=== PATIENT | female | born 1995 | race Caucasian/White ===

== ENCOUNTER 2018-04-01 09:40 | Emergency (ER) | payer OTHER, BC ==
[~2018-04-01] VITALS: Ht 167.6 cm; Wt 86.2 kg
[2018-04-01] MEDS ORDERED: BIRTH CONTROL (09:57)
[2018-04-01] MEDS ORDERED: ANTACID SUSP 30 ML UDC (MYLANTA) PO ONE (10:30)
[2018-04-01] MEDS ORDERED: KETOROLAC 30 MG/ML VIAL IVP STA (10:30)
[2018-04-01] MEDS ORDERED: LIDOCAINE 2% VISCOUS 15 ML UDC PO ONE (10:30)
[2018-04-01 10:51] LABS: BILIRUBIN,URINE NEGATIVE (NEGATIVE); CLARITY,URINE SLIGHTLY CLOUDY; COLOR,URINE YELLOW; GLUCOSE, URINE (UA) NEGATIVE (NEGATIVE); KETONES,URINE 2+ (NEGATIVE); LEUKOCYTE ESTERASE ,URINE 1+ (NEGATIVE); NITRITE,URINE NEGATIVE (NEGATIVE); PH,URINE 8 (5-9); PROTEIN,URINE NEGATIVE (NEGATIVE); UROBILINOGEN,URINE NORMAL (NORMAL)
--- NOTE | 2018-04-01 10:53 | ED Abdominal Pain ---
General Chief Complaint: Abdominal/GI Problems Stated Complaint: CHEST AND BACK PAIN Nursing Triage Note: PT CO OF EPIGASTRIC PAIN STARTED LAST PM, STATES GOES DOWN TO UMBILICUS AND AROUND TO UPPER BACK STARTED LAST PM RATES7/10 ON PAIN SCALE, Sepsis Screen: No Definite Risk Source of Information: Patient Exam Limitations: No Limitations (KEYONA GOVEA MD) History of Present Illness Date Seen by Provider: Apr 01, 2018 Time Seen by Provider: 10:21 Initial Comments Here with report of pain that started in the epigastric region last night and goes through to her back. Worse this morning. She tried some Pepcid and a Tylenol 3 and that did not help. Denies nausea or vomiting. Denies precipitating or relieving factors otherwise. Never had pain like this before. Timing/Duration: 1-2 Days Severity/Quality: Moderate, Aching Location: RUQ, Epigastric Radiation: Back Activities at Onset: None Modifying Factors: Improves With Other (no aggravating or relieving factors) Associated Symptoms: Back Pain; No Fever/Chills, No Nausea/Vomiting, No Shortness of Air, No Swelling/Mass in Abdomen, No Weakness (KEYONA GOVEA MD) Allergies and Home Medications Allergies Coded Allergies: No Known Drug Allergies (Unverified , 04/01/18) Patient Home Medication List Home Medication List Reviewed: Yes (KEYONA GOVEA MD) Review of Systems Review of Systems Constitutional: no symptoms reported; No chills, No fever EENTM: No Symptoms Reported Respiratory: No Symptoms Reported Cardiovascular: No Symptoms Reported Gastrointestinal: See HPI, Abdominal Pain; Denies Diarrhea, Denies Nausea, Denies Vomiting Genitourinary: No Symptoms Reported Musculoskeletal: see HPI Skin: no symptoms reported Psychiatric/Neurological: No Symptoms Reported (KEYONA GOVEA MD) All Other Systems Reviewed Negative Unless Noted: Yes (KEYONA GOVEA MD) Past Tkyjkpq-Xvtygg-Pscziy Hx Past Med/Social Hx: Reviewed Nursing Past Med/Soc Hx (KEYONA GOVEA MD) Patient Social History Alcohol Use: Occasionally Uses Recreational Drug Use: No Smoking Status: Never a Smoker Recent Foreign Travel: No Contact w/Someone Who Travel: No Recent Infectious Disease Expo: No Recent Hopitalizations: No Physical Abuse: No Sexual Abuse: No (KEYONA GOVEA MD) Past Medical History Surgeries: Yes (BACK SURG, ABD SURG, WRIST AND ANKLE) Respiratory: No Cardiac: No Neurological: No : No Last Menstrual Period: Mar 25, 2018 Gastrointestinal: No Musculoskeletal: No Endocrine: No HEENT: No Cancer: No Psychosocial: No Integumentary: No Blood Disorders: No (KEYONA GVOEA MD) Family Medical History Reviewed Nursing Family Hx (KEYONA GOVEA MD) Physical Exam Vital Signs Vital Signs - First Documented 04/01/18 09:45 Temp 97.5 Pulse 111 Resp 18 B/P (MAP) 143/90 (107) Pulse Ox 100 (LOKESH SCHMITT MD) Vital Signs Capillary Refill : Less Than 3 Seconds (KEYONA GOVEA MD) Height/Weight/BMI Height: 5'6.00" Weight: 190lbs. oz. 86.324262un; BMI Method:Stated General Appearance: WD/WN, no apparent distress HEENT: PERRL/EOMI, pharynx normal Neck: full range of motion, supple Respiratory: lungs clear, normal breath sounds Cardiovascular: regular rate, rhythm, no murmur Gastrointestinal: soft; No guarding, No rebound; tenderness Extremities: non-tender, normal inspection Back: normal inspection, no CVA tenderness, no vertebral tenderness Neurologic/Psychiatric: alert, oriented x 3 Skin: normal color, warm/dry (KEYONA GOVEA MD) Progress/Results/Core Measures Results/Orders Lab Results Laboratory Tests Test 04/01/18 10:42 04/01/18 10:50 Range/Units Urine Color YELLOW Urine Clarity SLIGHTLY CLOUDY Urine pH 8 5-9 Urine Specific [place] 1.010 L 1.016-1.022 Urine Protein NEGATIVE NEGATIVE Urine Glucose (UA) NEGATIVE NEGATIVE Urine Ketones 2+ H NEGATIVE Urine Nitrite NEGATIVE NEGATIVE Urine Bilirubin NEGATIVE NEGATIVE Urine Urobilinogen NORMAL NORMAL MG/DL Urine Leukocyte Esterase 1+ H NEGATIVE Urine RBC (Auto) NEGATIVE NEGATIVE Urine RBC NONE /HPF Urine WBC 0-2 /HPF Urine Squamous Epithelial Cells 2-5 /HPF Urine Crystals PRESENT H /LPF Urine Amorphous Sediment MOD MARIAM PHOSPHATE H /LPF Urine Bacteria FEW H /HPF Urine Casts NONE /LPF Urine Mucus NEGATIVE /LPF Urine Culture Indicated NO White Blood Count 8.2 4.3-11.0 10^3/uL Red Blood Count 4.11 L 4.35-5.85 10^6/uL Hemoglobin 11.5 11.5-16.0 G/DL Hematocrit 35 35-52 % Mean Corpuscular Volume 84 80-99 FL Mean Corpuscular Hemoglobin 28 25-34 PG Mean Corpuscular Hemoglobin Concent 33 32-36 G/DL Red Cell Distribution Width 14.0 10.0-14.5 % Platelet Count 254 130-400 10^3/uL Mean Platelet Volume 9.7 7.4-10.4 FL Neutrophils (%) (Auto) 84 H 42-75 % Lymphocytes (%) (Auto) 12 12-44 % Monocytes (%) (Auto) 4 0-12 % Eosinophils (%) (Auto) 0 0-10 % Basophils (%) (Auto) 0 0-10 % Neutrophils # (Auto) 6.2 1.8-7.8 X 10^3 Lymphocytes # (Auto) 0.9 L 1.0-4.0 X 10^3 Monocytes # (Auto) 0.3 0.0-1.0 X 10^3 Eosinophils # (Auto) 0.0 0.0-0.3 10^3/uL Basophils # (Auto) 0.0 0.0-0.1 10^3/uL Sodium Level 139 135-145 MMOL/L Potassium Level 4.2 3.6-5.0 MMOL/L Chloride Level 105 98-107 MMOL/L Carbon Dioxide Level 22 21-32 MMOL/L Anion Gap 12 5-14 MMOL/L Blood Urea Nitrogen 11 7-18 MG/DL Creatinine 0.76 0.60-1.30 MG/DL Estimat Glomerular Filtration Rate > 60 BUN/Creatinine Ratio 14 Glucose Level 86 70-105 MG/DL Calcium Level 9.2 8.5-10.1 MG/DL Corrected Calcium 9.1 8.5-10.1 MG/DL Total Bilirubin 0.9 0.1-1.0 MG/DL Aspartate Amino Transf (AST/SGOT) 15 5-34 U/L Alanine Aminotransferase (ALT/SGPT) 11 0-55 U/L Alkaline Phosphatase 74 40-136 U/L Total Protein 6.4 6.4-8.2 GM/DL Albumin 4.1 3.2-4.5 GM/DL Amylase Level 630 H 25-125 U/L Lipase 1851 H 8-78 U/L (LOKESH SCHMITT MD) Medications Given in ED Current Medications Medications Dose Ordered Sig/Kim Route Start Time Stop Time Status Last Admin Dose Admin Al Hydrox/Mg Hydrox/Simethicone 30 ml ONCE ONCE PO 04/01/18 10:30 04/01/18 10:32 DC 04/01/18 10:50 30 ML Iohexol 100 ml ONCE ONCE IV 04/01/18 12:00 04/01/18 12:01 DC 04/01/18 12:14 100 ML Lidocaine HCl 15 ml ONCE ONCE PO 04/01/18 10:30 04/01/18 10:32 DC 04/01/18 10:50 15 ML Ondansetron HCl 8 mg ONCE ONCE IVP 04/01/18 11:45 04/01/18 11:46 DC 04/01/18 11:44 8 MG Sodium Chloride 10 ml NEEDED PRN IV 04/01/18 12:00 04/01/18 12:15 10 ML Sodium Chloride 100 ml ONCE ONCE IV 04/01/18 12:00 04/01/18 12:01 DC 04/01/18 12:15 80 ML (LOKESH SCHMITT MD) Vital Signs/I&O 04/01/18 09:45 Temp 97.5 Pulse 111 Resp 18 B/P (MAP) 143/90 (107) Pulse Ox 100 (LOKESH SCHMITT MD) Blood Pressure Mean: 107 Urine -Bedside: Negative (KEYONA GOVEA MD) Progress Progress Note : Progress Note Seen and evaluated. IV, labs and UA ordered. Toradol 30 mg IV, GI cocktail ordered. Monitor patient. 1130: Pain persisted. Normal saline 1 L bolus and fentanyl 50 g IV ordered. 1140: Amylase markedly elevated and lipase still pending. We will go ahead and get CT abdomen and pelvis with contrast due to concerns about pancreatitis. Monitor patient. (KEYONA GOVEA MD) Departure Communication (Admissions) CT report shows the possibility of a mild pancreatitis. Amylase and lipase suggest considerably more than mild. No stones or reported on the CT scan. 1315. Discussed with Drs. Couch and Mal. The patient has elected to go upstairs for fluids, pain relief, and anti-emetics. She would like to defer this for a couple of hours in order to complete the family [place]. She understands that there is to be no eating and only water. She will then be admitted observation to complete ultrasound and other treatment. (LOKESH SCHMITT MD) Impression Primary Impression: acute pancreatitis Disposition: ADMITTED INPATIENT Condition: Stable/Unchanged Departure-Patient Inst. Decision time for Depature: 13:26 (LOKESH SCHMITT MD) Patient Instructions: No Instuctions Given Add. Discharge Instructions: All discharge instructions reviewed with patient and/or family. Voiced understanding. 1.take nothing more than water while at home. 2.return when family [place] is completed 3.Dr. Couch will be your attending physician and Dr. Resendez the surgeon KEYONA GOVEA MD Apr 01, 2018 10:52 LOKESH SCHMITT MD Apr 01, 2018 13:27
[2018-04-01 11:02] LABS: BASOPHILS % (AUTO) 0 % (0-10); EOSINOPHILS % (AUTO) 0 % (0-10); LYMPHOCYTES # (AUTO) 0.9 X 10^3 (1.0-4.0); LYMPHOCYTES % (AUTO) 12 % (12-44); MEAN CORPUSCULAR HGB CONC 33 G/DL (32-36); MEAN CORPUSCULAR VOLUME 84 FL (80-99); MEAN PLATELET VOLUME 9.7 FL (7.4-10.4); MONOCYTES # (AUTO) 0.3 X 10^3 (0.0-1.0); MONOCYTES % (AUTO) 4 % (0-12); NEUTROPHILS # (AUTO) 6.2 X 10^3 (1.8-7.8); NEUTROPHILS % (AUTO) 84 % (42-75)
[2018-04-01 11:03] LABS: HEMOGLOBIN 11.5 G/DL (11.5-16.0); MEAN CORPUSCULAR HEMOGLOBIN 28 PG (25-34); RED BLOOD COUNT 4.11 10^6/uL (4.35-5.85); WHITE BLOOD COUNT 8.2 10^3/uL (4.3-11.0)
[2018-04-01 11:04] LABS: PLATELET COUNT 254 10^3/uL (130-400)
[2018-04-01 11:05] LABS: HEMATOCRIT 35 % (35-52)
[2018-04-01] MEDS ORDERED: NS IV 1000 ML 1,000 ML IV STA (11:10)
[2018-04-01] MEDS ORDERED: fentaNYL INJECTION 100 MCG/2 ML AMP IVP STA (11:10)
[2018-04-01 11:12] LABS: AMORPHOUS SEDIMENT,UR MOD AMOR PHOSPHATE /LPF; BACTERIA,URINE FEW /HPF; WBC,URINE 0-2 /HPF
[2018-04-01 11:37] LABS: ALANINE AMINOTRANSFERASE 11 U/L (0-55); ALBUMIN 4.1 GM/DL (3.2-4.5); ALKALINE PHOSPHATASE 74 U/L (40-136); AMYLASE 630 U/L (25-125); BILIRUBIN,TOTAL 0.9 MG/DL (0.1-1.0); BUN/CREATININE RATIO 14; CALCIUM 9.2 MG/DL (8.5-10.1); CARBON DIOXIDE 22 MMOL/L (21-32); CHLORIDE 105 MMOL/L (98-107); CREATININE SERUM 0.76 MG/DL (0.60-1.30); GFR ESTIMATED > 60; GLUCOSE 86 MG/DL (70-105); POTASSIUM 4.2 MMOL/L (3.6-5.0); SODIUM 139 MMOL/L (135-145); TOTAL PROTEIN 6.4 GM/DL (6.4-8.2)
[2018-04-01] MEDS ORDERED: ONDANSETRON 4 MG/2 ML (SDV) Z0FRAN ONE (11:39)
[2018-04-01] MEDS ORDERED: ONDANSETRON 4 MG/2 ML (SDV) Z0FRAN IVP ONE (11:45)
[2018-04-01 11:58] LABS: LIPASE 1851 U/L (8-78)
[2018-04-01] MEDS ORDERED: IOHEXOL 350 MG/ML 100 ML (OMNIPAQUE 350) VIAL IV ONE (12:00)
[2018-04-01] MEDS ORDERED: RECEIVED CONTRAST (Hold Metformin) IV SCH (12:00)
[2018-04-01] MEDS ORDERED: NS 100 ML (IVPB) BAG IV ONE (12:00)
[2018-04-01] MEDS ORDERED: CATHETER FLUSH 10 ML SYR IV PRN (12:00)
--- NOTE | 2018-04-01 12:40 | Diagnostic Imaging Report ---
PROCEDURE: CT abdomen and pelvis with contrast. TECHNIQUE: Multiple contiguous axial images were obtained through the abdomen and pelvis after administration of intravenous contrast. INDICATION: Abdominal pain. FINDINGS: There are no prior studies available for comparison. The pancreas does not appear to be enlarged, but there may be mild distortion of the peripancreatic fat. The possibility of pancreatitis should be considered. Correlation with the patient's pancreatic enzyme levels will be recommended. The gallbladder, liver, spleen, adrenals, and kidneys are within normal limits. The aorta is not abnormally dilated and there is no sign of dissection. The inferior vena cava is unremarkable. The stomach is partially filled with fluid and consequently difficult to assess. There is no pelvic mass or free fluid collection noted. The uterus and urinary bladder are grossly unremarkable. The appendix is visualized and is not abnormally thickened. There do appear to be surgical sutures about the bowel in the mid abdomen. Correlation with the patient's surgical history will be recommended. The lung bases are clear. The bone windows show no evidence for a fracture or for a destructive lesion. There does appear to have been some type of bony fusion of the spinous processes of L2 and L3. Correlation with the patient's surgical history will be recommended. IMPRESSION: 1. The slight distortion of the peripancreatic fat does raise the question of mild pancreatitis. Clinical follow-up is recommended. 2. There is no acute abnormality of the abdomen or pelvis noted otherwise. 3. Correlation with the patient's surgical history regarding surgical procedures involving the bowel in the left mid abdomen and the spinous processes of L2 and L3. Dictated by: Dictated on workstation # [id number]
[2018-04-01 13:40] VITALS: BP 136/70
[2018-04-02] MEDS ORDERED: NORG1TAB75 PO (14:15)
== END 2018-04-01 13:40 | disposition other institution (70) ==
LOC: ER 09:41
DX: K85.90 Acute pancreatitis without necrosis or infection, unspecified (principal); Z98.890 Other specified postprocedural states
CPT/HCPCS: 36415; 74177; 80053; 81000; 82150; 83690; 84703; 85025; 96374; 96375

== ENCOUNTER 2018-04-01 13:38 | Inpatient (IN) | payer OTHER, BC ==
[~2018-04-01] VITALS: Ht 167.6 cm; Wt 87.1 kg
[~2018-04-01 13:38] MED LIST: BIRTH CONTROL
[2018-04-01] MEDS ORDERED: ACETAMINOPHEN 500 MG TAB (TYLENOL) PO PRN (14:00)
[2018-04-01] MEDS ORDERED: HYDROmorphone PF INJECTION 20 MG in NS (IVPB) 100 ML IV PRN (14:00)
--- NOTE | 2018-04-01 20:35 | NUR ---
ANEL CHAVEZ admitted to room 430-1, with an admitting diagnosis of adbominal pain, on 04/01/18 from via direct admit, accompanied by staff.ANEL CHAVEZ introduced to surroundings, call light, bed controls, phone, TV, temperature control, lights, meal times, smoking policy, visitor policy, side rail policy, bathrooms and showers. Patient Rights given to patient in the handbook. ANEL CHAVEZ verbalizes understanding that [facility] is not responsible for the loss or damage to any personal effects or valuables that are kept in the patients posession during their hospitalization.
[2018-04-01 20:45] VITALS: BP 118/69
[2018-04-01] MEDS ORDERED: CATHETER FLUSH 10 ML SYR IV PRN (21:30)
[2018-04-01] MEDS: CATHETER FLUSH 10 ML SYR IV SCH (22:05)
[2018-04-01] MEDS: NS IV 1000 ML 1,000 ML IV SCH (22:05)
[2018-04-01 22:15] VITALS: BP 118/69
--- NOTE | 2018-04-01 22:15 | NUR ---
This RN called Dr. Couch in regards to the pt requesting pain medication but not being in enough pain for the ordered continuous Dilaudid Hp injection 20 mg in NS Ivpb bag 100mL RECEIVING MANAGER pump and in regards to radiology requesting the date for the 04/01/18 US to be changed to 04/02/18. Orders received to change the US date to 04/02/18, cancel the continuous Dilaudid Hp injection 20 mg in NS 100 mL bag RECEIVING MANAGER pump order, start Percocet 5/325 mg PO Q4H prn, start Dilaudid 0.5 mg IV Q4H prn, and add order for sips of water with medications. Orders read back and verified.
[2018-04-01] MEDS ORDERED: HYDROmorphone 2 MG/ML VIAL (DILAUDID) IV PRN (22:30)
[2018-04-01] MEDS: oxyCODONE/APAP 5/325MG (PERCOCET 5) TABLET PO PRN (22:42)
[2018-04-02] VITALS: BP 113/56
[2018-04-02] MEDS: oxyCODONE/APAP 5/325MG (PERCOCET 5) TABLET PO PRN ×3 (02:42→20:36)
[2018-04-02 04:00] VITALS: BP 112/61
[2018-04-02] MEDS: CATHETER FLUSH 10 ML SYR IV SCH ×3 (05:58→22:33)
[2018-04-02] MEDS: NS IV 1000 ML 1,000 ML IV SCH ×3 (05:58→22:52)
[2018-04-02 06:00] LABS: BASOPHILS % (AUTO) 0 % (0-10); EOSINOPHILS % (AUTO) 0 % (0-10); HEMATOCRIT 30 % (35-52); HEMOGLOBIN 9.8 G/DL (11.5-16.0); LYMPHOCYTES # (AUTO) 1.6 X 10^3 (1.0-4.0); LYMPHOCYTES % (AUTO) 26 % (12-44); MEAN CORPUSCULAR HEMOGLOBIN 28 PG (25-34); MEAN CORPUSCULAR HGB CONC 33 G/DL (32-36); MEAN CORPUSCULAR VOLUME 85 FL (80-99); MEAN PLATELET VOLUME 10.2 FL (7.4-10.4); MONOCYTES # (AUTO) 0.5 X 10^3 (0.0-1.0); MONOCYTES % (AUTO) 7 % (0-12); NEUTROPHILS # (AUTO) 4.2 X 10^3 (1.8-7.8); NEUTROPHILS % (AUTO) 66 % (42-75); PLATELET COUNT 216 10^3/uL (130-400); RED BLOOD COUNT 3.54 10^6/uL (4.35-5.85); RED CELL DISTRIBUTION WIDTH 13.9 % (10.0-14.5); WHITE BLOOD COUNT 6.3 10^3/uL (4.3-11.0)
[2018-04-02 06:20] LABS: ALANINE AMINOTRANSFERASE 12 U/L (0-55); ALBUMIN 3.2 GM/DL (3.2-4.5); ALKALINE PHOSPHATASE 58 U/L (40-136); AMYLASE 265 U/L (25-125); BILIRUBIN,TOTAL 1.1 MG/DL (0.1-1.0); BUN/CREATININE RATIO 11; CALCIUM 7.9 MG/DL (8.5-10.1); CARBON DIOXIDE 22 MMOL/L (21-32); CHLORIDE 109 MMOL/L (98-107); CREATININE SERUM 0.72 MG/DL (0.60-1.30); GFR ESTIMATED > 60; GLUCOSE 85 MG/DL (70-105); LIPASE 545 U/L (8-78); POTASSIUM 3.9 MMOL/L (3.6-5.0); SODIUM 140 MMOL/L (135-145); TOTAL PROTEIN 5.2 GM/DL (6.4-8.2)
[2018-04-02] MEDS ORDERED: FLU QUADRIvalent (5+ YOA) 2018-2019 (AFLURIA) 0.5 ML IM ONE (07:15)
[2018-04-02 08:00] VITALS: BP 119/70
[2018-04-02] MEDS: ONDANSETRON 4 MG/2 ML (SDV) Z0FRAN IVP PRN ×3 (09:27→22:55)
--- NOTE | 2018-04-02 10:02 | Diagnostic Imaging Report ---
PROCEDURE: US Abdomen, limited. TECHNIQUE: Multiple realtime grayscale images were obtained over the abdomen in various projections. INDICATION: Right upper quadrant pain and elevated lipase. The liver is mildly enlarged at 21 cm. No discrete liver mass is identified. The portal vein is patent and shows normal direction of flow. Gallbladder is without stones or sludge. No wall thickening or biliary duct dilatation is seen. The pancreas and right kidney are unremarkable. There is no ascites. IMPRESSION: Unremarkable right upper quadrant ultrasound. Dictated by: Dictated on workstation # [id number]
--- NOTE | 2018-04-02 10:18 | History & Physical-Hospitalist ---
History of Present Illness HPI/Chief Complaint CC: Severe abdominal pain due to acute pancreatitis HPI: This is a 22-year-old white female who presented to the ER with severe abdominal pain workup ensued revealing acute pancreatitis without evidence of gallbladder source. She was discharged from the ER upon agreeing to return after [place] celebration with her 2 small children for nothing by mouth status IV fluids and pain medication. Ultrasound obtained of the gallbladder revealed no gallstones but she reports that no one in her family is able to maintain their gallbladder organs status since everyone has a cholecystectomy. Dr. Resendez has been consulted and will evaluate the need for an esophageal ultrasound to evaluate for any obstruction causing the acute pancreatitis of the biliary tree. HIDA scan will be contemplated in the future if no source is found. Source: patient, family, RN/MD Exam Limitations: no limitations Date Seen 04/02/18 Time Seen by a Provider: 09:15 Attending Physician Elsy Couch DO PCP No,Local Physician Referring Physician Date of Admission Apr 01, 2018 at 20:19 Home Medications & Allergies Home Medications Reviewed patient Home Medication Reconciliation performed by pharmacy medication reconciliations vascular ultrasound technician and/or nursing. Patients Allergies have been reviewed. 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[place], [place]) Alcohol Use: Occasionally Uses Number of Drinks Today: 0 Alcohol Beverage of Choice: Beer Recreational Drug Use: No Physical Abuse Screen: No Sexual Abuse: No Recent Foreign Travel: No ([employer] September 2017) Contact w/other who traveled: Yes Recent Hopitalizations: No Recent Infectious Disease Expo: No Seasonal Allergies Seasonal Allergies: No Past Medical History History of Blood Disorders: No Adverse Reaction to Blood Johnson: No Family History Other Conditions/Hx (gallbladder disease) Review of Systems Constitutional: see HPI EENTM: no symptoms reported Respiratory: no symptoms reported Cardiovascular: no symptoms reported Gastrointestinal: abdominal pain (RUQ), loss of appetite, nausea, vomiting Genitourinary: no symptoms reported Musculoskeletal: no symptoms reported Skin: no symptoms reported Psychiatric/Neurological: No Symptoms Reported All Other Systems Reviewed Negative Unless Noted: Yes Physical Exam Physical Exam Vital Signs Vital Signs - First Documented 04/01/18 04/01/18 20:35 20:45 Temp 98.8 Pulse 89 Resp 18 B/P (MAP) 118/69 (85) Pulse Ox 100 O2 Delivery Room Air Capillary Refill : Height, Weight, BMI Height: 5'6.00" Weight: 192lbs. 1.0oz. 87.456227rr; 31.0 BMI Method:Stated General Appearance: No Apparent Distress, WD/WN Eyes: Bilateral Eye Normal Inspection, Bilateral Eye PERRL HEENT: PERRL/EOMI, TMs Normal, Normal ENT Inspection, Pharynx Normal Neck: Full Range of Motion, Normal Inspection, Non Tender, Supple, Carotid Bruit Respiratory: Chest Non Tender, Lungs Clear, Normal Breath Sounds, No Accessory Muscle Use, No Respiratory Distress Cardiovascular: Regular Rate, Rhythm, No Edema, No Gallop, No JVD, No Murmur, Normal Peripheral Pulses Gastrointestinal: Normal Bowel Sounds, No Organomegaly, No Pulsatile Mass, Soft , Tenderness (upper abdomen) Back: Normal Inspection, No CVA Tenderness, No Vertebral Tenderness Extremity: Normal Capillary Refill, Normal Inspection, Normal Range of Motion, Non Tender, No Calf Tenderness, No Pedal Edema Neurologic/Psychiatric: Alert, Oriented x3, No Motor/Sensory Deficits, Normal Mood/Affect Skin: Normal Color, Warm/Dry Lymphatic: No Adenopathy Results Results/Procedures Labs Laboratory Tests 04/02/18 05:46 Patient resulted labs reviewed. Assessment/Plan Admission Diagnosis Assessment: Acute pancreatitis with normal Doppler ultrasound but family history of gallbladder disease Plan: Pain control Nothing by mouth status IV fluid Dr. Resendez consultation May need esophageal ultrasound to evaluate source of obstruction of biliary tree Admission Status: Observation Diagnosis/Problems Diagnosis/Problems (1) Pancreatitis Status: Acute Qualifiers: Chronicity: acute Pancreatitis type: unspecified pancreatitis type Acute pancreatitis complication: unspecified Qualified Codes: K85.90 - Acute pancreatitis without necrosis or infection, unspecified Clinical Quality Measures DVT/VTE Risk/Contraindication: Risk Factor Score Per Nursin RFS Level Per Nursing on Admit: 1=Low/No VTE PPX ELSY COUCH DO Apr 02, 2018 10:18
[2018-04-02 12:00] VITALS: BP 117/64
--- NOTE | 2018-04-02 13:13 | Consultation ---
History of Present Illness History of Present Illness Patient Consulted On(nakia/time) 04/02/18 13:10 Date Seen by Provider: Apr 02, 2018 Time Seen by Provider: 13:10 Reason for Visit: Acute upper abdominal pain History of Present Illness Acute onset of upper abdominal pain radiating to the back over a 24-hour period , leading to an emergency room visit. Evaluation has shown early pancreatitis of unknown etiology. Ultrasound of the gallbladder is negative for gallstones. Allergies and Home Medications Allergies Coded Allergies: No Known Drug Allergies (Unverified , 04/01/18) Patient Home Medication List Home Medication List Reviewed: Yes Past Hcwdaod-Mmboep-Nqkbol Hx Past Med/Social Hx: Reviewed Nursing Past Med/Soc Hx, Reviewed and Corrections made Patient Social History Alcohol Use: Occasionally Uses Number of Drinks Today: 0 Alcohol Beverage of Choice: Beer Recreational Drug Use: No Recent Foreign Travel: No ([employer] September 2017) Contact w/Someone Who Travel: Yes Recent Infectious Disease Expo: No Recent Hopitalizations: No Seasonal Allergies Seasonal Allergies: No Past Medical History Surgeries: Yes (BACK SURG x3, ABD SURG (large and small recection), WRIST AND ANKLE) Abdominal, Bowel Surgery Respiratory: No Cardiac: No Neurological: No Genitourinary: No Gastrointestinal: No Musculoskeletal: No Endocrine: No HEENT: No Cancer: No Psychosocial: No Integumentary: No Blood Disorders: No Adverse Reaction/Blood Tranf: No Family Medical History Other Conditions/Hx (gallbladder disease) Review of Systems-General Constitutional: malaise EENTM: no symptoms reported Respiratory: no symptoms reported Cardiovascular: no symptoms reported Gastrointestinal: see HPI Genitourinary: no symptoms reported Musculoskeletal: no symptoms reported Skin: no symptoms reported Psychiatric/Neurological: No Symptoms Reported Physical Exam-General Problems Physical Exam Vital Signs Vital Signs - First Documented 04/01/18 04/01/18 20:35 20:45 Temp 98.8 Pulse 89 Resp 18 B/P (MAP) 118/69 (85) Pulse Ox 100 O2 Delivery Room Air Capillary Refill : General Appearance: moderate distress HEENT: normal ENT inspection Neck: supple Respiratory: lungs clear Cardiovascular: regular rate, rhythm Gastrointestinal: soft, tenderness, other Rectal: deferred Extremities: non-tender Neurologic/Psychiatric: alert, oriented x 3 Skin: warm/dry Comments tenderness over the upper abdomen. Midline scar resulting from laparotomy in her teenage, involving small bowel resection from blunt trauma Assessment/Plan Assessment/Plan Admission Diagnosis/Plan Lady with idiopathic pancreatitis. Previous abdominal surgery from blunt trauma requiring small bowel resection. No gallstones. Reasonable to manage her conservatively and arrange an outpatient endoscopic ultrasound for further evaluation. At this point, it is reasonable to withhold HIDA scan. I have discussed this with her and she seems to comprehend. Admission Status: Observation Clinical Quality Measures DVT/VTE Risk/Contraindication: Risk Factor Score Per Nursin RFS Level Per Nursing on Admit: 1=Low/No VTE PPX WINSOME JONES MD Apr 02, 2018 13:13
[2018-04-02] MEDS: fentaNYL INJECTION 100 MCG/2 ML AMP IVP PRN ×2 (13:41→22:56)
[2018-04-02] MEDS ORDERED: NORG1TAB75 PO (14:15)
[2018-04-02 16:00] VITALS: BP 110/62
[2018-04-02 20:00] VITALS: BP 115/60
[2018-04-02] MEDS: PANTOPRAZOLE 40 MG (PROTONIX) VIAL IV SCH (20:35)
[2018-04-03 00:07] VITALS: BP 114/65
[2018-04-03] MEDS: ONDANSETRON 4 MG/2 ML (SDV) Z0FRAN IVP PRN ×4 (03:41→16:08)
[2018-04-03] MEDS: fentaNYL INJECTION 100 MCG/2 ML AMP IVP PRN ×5 (03:41→20:17)
[2018-04-03 04:10] VITALS: BP 117/63
[2018-04-03 05:50] LABS: BASOPHILS % (AUTO) 0 % (0-10); EOSINOPHILS % (AUTO) 0 % (0-10); HEMATOCRIT 31 % (35-52); LYMPHOCYTES # (AUTO) 1.2 X 10^3 (1.0-4.0); LYMPHOCYTES % (AUTO) 16 % (12-44); MEAN CORPUSCULAR HEMOGLOBIN 28 PG (25-34); MEAN CORPUSCULAR HGB CONC 33 G/DL (32-36); MEAN CORPUSCULAR VOLUME 85 FL (80-99); MEAN PLATELET VOLUME 10.6 FL (7.4-10.4); MONOCYTES # (AUTO) 0.5 X 10^3 (0.0-1.0); MONOCYTES % (AUTO) 7 % (0-12); NEUTROPHILS # (AUTO) 5.8 X 10^3 (1.8-7.8); NEUTROPHILS % (AUTO) 77 % (42-75); PLATELET COUNT 209 10^3/uL (130-400); RED BLOOD COUNT 3.62 10^6/uL (4.35-5.85); RED CELL DISTRIBUTION WIDTH 13.8 % (10.0-14.5); WHITE BLOOD COUNT 7.6 10^3/uL (4.3-11.0)
[2018-04-03] MEDS: CATHETER FLUSH 10 ML SYR IV SCH ×4 (06:07→23:10)
[2018-04-03 06:16] LABS: ALANINE AMINOTRANSFERASE 9 U/L (0-55); ALBUMIN 3.2 GM/DL (3.2-4.5); ALKALINE PHOSPHATASE 68 U/L (40-136); AMYLASE 107 U/L (25-125); BUN/CREATININE RATIO 9; CALCIUM 8.3 MG/DL (8.5-10.1); CARBON DIOXIDE 16 MMOL/L (21-32); CHLORIDE 109 MMOL/L (98-107); CREATININE SERUM 0.74 MG/DL (0.60-1.30); GFR ESTIMATED > 60; LIPASE 199 U/L (8-78); POTASSIUM 3.6 MMOL/L (3.6-5.0); SODIUM 137 MMOL/L (135-145); TOTAL PROTEIN 5.9 GM/DL (6.4-8.2)
[2018-04-03 06:20] LABS: GLUCOSE 56 MG/DL (70-105)
--- NOTE | 2018-04-03 06:22 | NUR ---
This RN contacted Dr. Couch in regards to lab calling this RN with a critical glucose of 56. Orders received for 25 mL D50 IV now. Orders read back and verified.
[2018-04-03] MEDS ORDERED: DEXTROSE 50% 50 ML (IMS) SYR ONE (06:23)
[2018-04-03] MEDS ORDERED: DEXTROSE 50% 50 ML (IMS) SYR IV ONE (06:30)
--- NOTE | 2018-04-03 06:50 | NUR ---
Finger stick blood sugar accucheck reading 116.
--- NOTE | 2018-04-03 06:52 | NUR ---
This RN informed Dr. Couch of the pt's finger glucose accucheck being 116 15 minutes after 25 mL D50 given IV. Orders received to change the pt's continuous fluids to dextrose 5%/normal saline IV 1000 mL bag at 125/hr. Orders read back and verified.
--- NOTE | 2018-04-03 07:13 | NUR ---
This RN called Dr. Resendez in regards to the pt's critical lab and post D50 IV lab (see previous notes). Orders received to change the pt's diet to clear liquids. Orders read back and verified.
[2018-04-03] MEDS: D5 NS 1000 ML IV SOLUTION 1,000 ML IV SCH ×3 (07:18→23:08)
[2018-04-03 08:00] VITALS: BP 137/72
--- NOTE | 2018-04-03 09:03 | Progress Note-Hospitalist ---
Subjective HPI/CC On Admission Date Seen by Provider: Apr 03, 2018 Time Seen by Provider: 09:00 CC: Severe abdominal pain due to acute pancreatitis HPI: This is a 22-year-old white female who presented to the ER with severe abdominal pain workup ensued revealing acute pancreatitis without evidence of gallbladder source. She was discharged from the ER upon agreeing to return after [place] celebration with her 2 small children for nothing by mouth status IV fluids and pain medication. Ultrasound obtained of the gallbladder revealed no gallstones but she reports that no one in her family is able to maintain their gallbladder organs status since everyone has a cholecystectomy. Dr. Resendez has been consulted and will evaluate the need for an esophageal ultrasound to evaluate for any obstruction causing the acute pancreatitis of the biliary tree. HIDA scan will be contemplated in the future if no source is found. Subjective/Events-last exam Patient doing about the same Abdominal pain persist Amylase and lipase decreasing nicely to near normal Awaiting Dr. Resendez plan Ambulating well No nausea or vomiting Review of Systems Gastrointestinal: Abdominal Pain Objective Exam Vital Signs Vital Signs Date Time Temp Pulse Resp B/P (MAP) Pulse Ox O2 Delivery O2 Flow Rate FiO2 04/03/18 08:00 99.4 106 18 137/72 (93) 98 Room Air Capillary Refill : General Appearance: No Apparent Distress, WD/WN Respiratory: Chest Non Tender, Lungs Clear, Normal Breath Sounds, No Accessory Muscle Use, No Respiratory Distress Cardiovascular: Regular Rate, Rhythm, No Edema, No Gallop, No JVD, No Murmur, Normal Peripheral Pulses Gastrointestinal: Normal Bowel Sounds, No Organomegaly, No Pulsatile Mass, Soft , Tenderness Neurologic/Psychiatric: Alert, Oriented x3, No Motor/Sensory Deficits, Normal Mood/Affect Results/Procedures Lab Laboratory Tests 04/03/18 05:30 Patient resulted labs reviewed. Assessment/Plan Assessment and Plan Assess & Plan/Chief Complaint Assessment: Acute pancreatitis with normal abdominal ultrasound but family history of gallbladder disease History of blunt abdominal trauma with bowel resection history Plan: Appreciate Dr. Resendez expertise Monitor closely Diagnosis/Problems Diagnosis/Problems (1) Pancreatitis Status: Acute Qualifiers: Chronicity: acute Pancreatitis type: unspecified pancreatitis type Acute pancreatitis complication: unspecified Qualified Codes: K85.90 - Acute pancreatitis without necrosis or infection, unspecified Clinical Quality Measures DVT/VTE Risk/Contraindication: Risk Factor Score Per Nursin RFS Level Per Nursing on Admit: 1=Low/No VTE PPX LEANNA WRIGHT DO Apr 03, 2018 09:03
[2018-04-03] MEDS: PANTOPRAZOLE 40 MG (PROTONIX) VIAL IV SCH ×2 (09:22→20:16)
[2018-04-03] MEDS: oxyCODONE/APAP 5/325MG (PERCOCET 5) TABLET PO PRN ×3 (09:22→23:08)
[2018-04-03 12:00] VITALS: BP 126/68
--- NOTE | 2018-04-03 14:16 | Progress Note (SOAP) ---
Subjective Date Seen by a Provider: Apr 03, 2018 Time Seen by a Provider: 12:20 Subjective/Events-last exam increased abdominal pain. Quite tearful and disappointed about not getting relief quick enough. Review of Systems General: No Chills, No Night Sweats, No Fatigue, No Malaise HEENT: No Head Aches, No Eye Pain, No Ear Pain, No Dysphasia, No Sinus Congestion, No Post Nasal Drip, No Sore Throat Pulmonary: No Dyspnea, No Cough, No Pleuritic Chest Pain Cardiovascular: No: Chest Pain, Palpitations, Orthopnea, Paroxysmal Noc. Dyspnea, Edema, Lt Headedness Gastrointestinal: Abdominal Pain Genitourinary: No Dysuria, No Frequency, No Incontinence, No Hematuria, No Retention Musculoskeletal: No: other, neck pain, shoulder pain, arm pain, back pain, hand pain, leg pain, foot pain Neurological: No: Weakness, Numbness, Incoordination, Change in speech, Confusion, Seizures, Other Objective Exam Vital Signs Date Time Temp Pulse Resp B/P (MAP) Pulse Ox O2 Delivery O2 Flow Rate FiO2 04/03/18 12:00 99.4 96 18 126/68 (87) 98 Room Air 04/03/18 08:00 99.4 106 18 137/72 (93) 98 Room Air 04/03/18 04:10 99.1 111 20 117/63 (81) 97 Room Air 04/03/18 00:07 99.0 110 18 114/65 (81) 96 Room Air 04/02/18 20:00 98.4 106 18 115/60 (78) 100 Room Air 04/02/18 16:00 99.4 101 18 110/62 (78) 97 Room Air I & O 04/03/18 07:00 Intake Total 1000 ml Balance 1000 ml Capillary Refill : General Appearance: Anxious, Mild Distress Neck: Normal Inspection Respiratory: Lungs Clear Cardiovascular: Regular Rate, Rhythm Gastrointestinal: non tender, soft Neurologic/Psychiatric: Other Skin: Warm/Dry Results Lab Laboratory Tests 04/03/18 05:30: White Blood Count 7.6, Red Blood Count 3.62L, Hemoglobin 10.0L, Hematocrit 31L, Mean Corpuscular Volume 85, Mean Corpuscular Hemoglobin 28, Mean Corpuscular Hemoglobin Concent 33, Red Cell Distribution Width 13.8, Platelet Count 209, Mean Platelet Volume 10.6H, Neutrophils (%) (Auto) 77H, Lymphocytes (%) (Auto) 16, Monocytes (%) (Auto) 7, Eosinophils (%) (Auto) 0, Basophils (%) (Auto) 0, Neutrophils # (Auto) 5.8, Lymphocytes # (Auto) 1.2, Monocytes # (Auto) 0.5, Eosinophils # (Auto) 0.0, Basophils # (Auto) 0.0, Sodium Level 137, Potassium Level 3.6, Chloride Level 109H, Carbon Dioxide Level 16L, Anion Gap 12, Blood Urea Nitrogen 7, Creatinine 0.74, Estimat Glomerular Filtration Rate > 60, BUN/ Creatinine Ratio 9, Glucose Level 56*L, Calcium Level 8.3L, Corrected Calcium 8.9, Total Bilirubin 1.0, Aspartate Amino Transf (AST/SGOT) 13, Alanine Aminotransferase (ALT/SGPT) 9, Alkaline Phosphatase 68, Total Protein 5.9L, Albumin 3.2, Amylase Level 107, Lipase 199H 04/03/18 06:51: Glucometer 116H Assessment/Plan Assessment/Plan Assess & Plan/Chief Complaint Lady with idiopathic pancreatitis. Previous abdominal surgery from blunt trauma requiring small bowel resection. No gallstones. Reasonable to manage her conservatively and arrange an outpatient endoscopic ultrasound for further evaluation. At this point, it is reasonable to withhold HIDA scan. I have discussed this with her and she seems to comprehend. Lady with idiopathic hepatitis. Endoscopic ultrasound arranged for tomorrow afternoon. Patient quite tearful and I have explained the nature of peritonitis , requiring nothing by mouth status and time. I've encouraged her and her to try to come to terms with the condition and the requirement for hospital care, allowing the pancreatitis to subside. Final Diagnosis Pancreatitis Clinical Quality Measures DVT/VTE Risk/Contraindication: Risk Factor Score Per Nursin RFS Level Per Nursing on Admit: 1=Low/No VTE PPX WINSOME JONES MD Apr 03, 2018 14:16
[2018-04-03 16:05] VITALS: BP 120/77
[2018-04-03 19:55] VITALS: BP 126/80
[2018-04-04 00:13] VITALS: BP 130/74
[2018-04-04] MEDS: oxyCODONE/APAP 5/325MG (PERCOCET 5) TABLET PO PRN ×3 (03:24→21:38)
[2018-04-04 04:01] VITALS: BP 133/76
[2018-04-04] MEDS: D5 NS 1000 ML IV SOLUTION 1,000 ML IV SCH ×2 (05:23→15:11)
[2018-04-04 06:49] LABS: BASOPHILS % (AUTO) 0 % (0-10); EOSINOPHILS % (AUTO) 1 % (0-10); HEMATOCRIT 28 % (35-52); HEMOGLOBIN 9.3 G/DL (11.5-16.0); LYMPHOCYTES # (AUTO) 1.3 X 10^3 (1.0-4.0); LYMPHOCYTES % (AUTO) 23 % (12-44); MEAN CORPUSCULAR HEMOGLOBIN 28 PG (25-34); MEAN CORPUSCULAR HGB CONC 33 G/DL (32-36); MEAN CORPUSCULAR VOLUME 85 FL (80-99); MEAN PLATELET VOLUME 11.2 FL (7.4-10.4); MONOCYTES # (AUTO) 0.5 X 10^3 (0.0-1.0); MONOCYTES % (AUTO) 9 % (0-12); NEUTROPHILS # (AUTO) 3.7 X 10^3 (1.8-7.8); NEUTROPHILS % (AUTO) 68 % (42-75); PLATELET COUNT 180 10^3/uL (130-400); RED BLOOD COUNT 3.35 10^6/uL (4.35-5.85); RED CELL DISTRIBUTION WIDTH 13.6 % (10.0-14.5); WHITE BLOOD COUNT 5.5 10^3/uL (4.3-11.0)
[2018-04-04 07:12] LABS: ALANINE AMINOTRANSFERASE 8 U/L (0-55); ALBUMIN 2.9 GM/DL (3.2-4.5); ALKALINE PHOSPHATASE 57 U/L (40-136); AMYLASE 154 U/L (25-125); BILIRUBIN,TOTAL 0.8 MG/DL (0.1-1.0); BUN/CREATININE RATIO 3; CALCIUM 7.8 MG/DL (8.5-10.1); CARBON DIOXIDE 23 MMOL/L (21-32); CHLORIDE 109 MMOL/L (98-107); CREATININE SERUM 0.66 MG/DL (0.60-1.30); GFR ESTIMATED > 60; GLUCOSE 102 MG/DL (70-105); LIPASE 274 U/L (8-78); POTASSIUM 3.1 MMOL/L (3.6-5.0); SODIUM 141 MMOL/L (135-145); TOTAL PROTEIN 5.2 GM/DL (6.4-8.2)
[2018-04-04] MEDS: CATHETER FLUSH 10 ML SYR IV SCH ×2 (07:59→21:37)
[2018-04-04 08:00] VITALS: BP 124/66
--- NOTE | 2018-04-04 09:15 | NUR ---
FENTANYL 25MG IV FOR ABD PAIN.
[2018-04-04] MEDS: PANTOPRAZOLE 40 MG (PROTONIX) VIAL IV SCH ×2 (09:18→21:37)
[2018-04-04] MEDS: fentaNYL INJECTION 100 MCG/2 ML AMP IVP PRN (09:18)
--- NOTE | 2018-04-04 09:40 | NUR ---
IV CHANGED TO HL. RELEASE OF LIABILITY SIGNED.
--- NOTE | 2018-04-04 09:45 | NUR ---
RELEASED ON PASS TO [facility]/DR. GLOVER FOR POSSIBLE ERCP.
--- NOTE | 2018-04-04 14:35 | NUR ---
RET'D FROM ERCP. REQUESTING CHANGE IN PHYSICIAN TO DR. MARQUEZ. DR. WRIGHT NOTIFIED. NO NEW ORDERS REC'D. MESSAGE LEFT FOR DR. JONES. AWAITING RESPONSE.
[2018-04-04 14:44] VITALS: BP 127/81
--- NOTE | 2018-04-04 15:52 | Progress Note-Standard ---
Standard Progress Note Progress Notes/Assess & Plan Date Seen by a Provider: Apr 04, 2018 Time Seen by a Provider: 15:37 Progress/Assessment & Plan This lady has been admitted with pancreatitis. Conventional, transabdominal ultrasound was negative for gallstones. Due to suspicion for sludge in the gallbladder and on the basis of unresolved pain, I obtained an endoscopic ultrasound, confirming sludge and crystals within the gallbladder, contributing to pancreatitis. At this point, the nursing staff and Dr. Mami Couch, the patient's hospitalist informed me that the patient had elected to undergo surgery by another surgeon. Therefore, I have canceled arrangements for surgery to be performed under my care and requested the nursing staff and Dr. Couch to facilitate the patient's wishes. Final Diagnosis Gallstone pancreatitis WINSOME JONES MD Apr 04, 2018 15:52
--- NOTE | 2018-04-04 16:00 | NUR ---
ORDER REC'D FROM DR. WRIGHT TO CONSULT DR. MARQUEZ FOR GB SURG TOMORROW PER PT REQUEST. Sybil BAER NOTIFIED AND ORDERS REC'D.
--- NOTE | 2018-04-04 16:05 | NUR ---
NASAL SWABS DONE, CONSENT SIGNED, SURGERY SCHEDULED. PT INFORMED OF NPO @ 0200, BUT CLEAR LIQUIDS TILL THEN. NO IV ACCESS AND ATTEMPTS X 2 AMANDA. Sybil BAER GAVE ORDER TO LEAVE IV OUT.
[2018-04-04 16:20] VITALS: BP 127/82
--- NOTE | 2018-04-04 17:00 | NUR ---
URINE PREG TEST TO LAB.
--- NOTE | 2018-04-04 17:05 | NUR ---
PERCOCET PO FOR ABD PAIN.
[2018-04-04 19:40] VITALS: BP 120/80
--- NOTE | 2018-04-04 23:05 | NUR ---
Rec new order from Dr. Resendez (wine consultant for Dr. Larson) for Benadryl 25mg po q 6 hr prn for pt c/o of itching
[2018-04-04] MEDS ORDERED: diphenhydrAMINE 25 MG TAB (BENADRYL) PO PRN (23:15)
[2018-04-05 00:27] VITALS: BP 119/65
[2018-04-05] MEDS: oxyCODONE/APAP 5/325MG (PERCOCET 5) TABLET PO PRN ×2 (04:21→13:07)
[2018-04-05] MEDS: CATHETER FLUSH 10 ML SYR IV SCH ×2 (05:41→16:08)
[2018-04-05 08:00] VITALS: BP 124/74
--- NOTE | 2018-04-05 09:17 | Consultation ---
History of Present Illness History of Present Illness Patient Consulted On(nakia/time) 04/05/18 09:14 Date Seen by Provider: Apr 05, 2018 Time Seen by Provider: 09:00 Reason for Visit: Acute upper abdominal pain History of Present Illness Mrs. Miesha Silva is a 22 year old female who was seen with Dr. Marquez. Patient presented to the ER on 04/01 with mid to upper abdominal pain that was sharp in nature. She reports that this initially started on the evening of however persisted and then presented to ER the following day. She was found to have elevated amylase and lipase consistent with pancreatitis however patient wanted to spend [place] with her children and was instructed to return the following day. She then underwent a gallbladder ultrasound which was unremarkable and her amylase and lipase were improving but her pain continued. She was then sent for an ERCP yesterday by Dr. Meraz which the patient reports she has sludge and crystals within the gallbladder and was instructed to have her gallbladder removed. She was being seen by another general surgeon, however requested Dr. Marquez for her surgery and he agreed to proceed. Patient reports today that she is still having pain in the mid to upper abdominal region but denies any other symptoms at this time. She does report a strong family history of gallbladder disease. Allergies and Home Medications Allergies Coded Allergies: No Known Drug Allergies (Unverified , 04/01/18) Home Medications Hydrocodone Bit/Acetaminophen 1 Ea Tablet, 1 EACH PO Q4H PRN for PAIN-MODERATE Prescribed by: MATEUS MARQUEZ on 04/05/18 1149 Norgestimate-Ethinyl Estradiol 1 Each Tablet, 1 TAB PO DAILY, (Reported) Patient Home Medication List Home Medication List Reviewed: Yes Past Yfpheoz-Naylum-Ayjebb Hx Past Med/Social Hx: Reviewed Nursing Past Med/Soc Hx, Reviewed and Corrections made Patient Social History Alcohol Use: Occasionally Uses Number of Drinks Today: 0 Alcohol Beverage of Choice: Beer Recreational Drug Use: No Recent Foreign Travel: No ([place] September 2017) Contact w/Someone Who Travel: Yes Recent Infectious Disease Expo: No Recent Hopitalizations: No Seasonal Allergies Seasonal Allergies: No Past Medical History Surgeries: Yes (BACK SURG x3, ABD SURG (large and small recection), WRIST AND ANKLE) Abdominal, Bowel Surgery Respiratory: No Cardiac: No Neurological: No Genitourinary: No Gastrointestinal: No Musculoskeletal: No Endocrine: No HEENT: No Cancer: No Psychosocial: No Integumentary: No Blood Disorders: No Adverse Reaction/Blood Tranf: No Family Medical History Other Conditions/Hx (gallbladder disease) Review of Systems-General Constitutional: no symptoms reported EENTM: no symptoms reported Respiratory: no symptoms reported Cardiovascular: no symptoms reported Gastrointestinal: abdominal pain (RUQ) Genitourinary: no symptoms reported Musculoskeletal: no symptoms reported Skin: no symptoms reported Psychiatric/Neurological: No Symptoms Reported Physical Exam-General Problems Physical Exam Vital Signs Vital Signs - First Documented 04/01/18 04/01/18 20:35 20:45 Temp 98.8 Pulse 89 Resp 18 B/P (MAP) 118/69 (85) Pulse Ox 100 O2 Delivery Room Air Capillary Refill : Less Than 3 Seconds General Appearance: WD/WN, no apparent distress Neck: non-tender, full range of motion, supple, normal inspection Respiratory: lungs clear, normal breath sounds, no respiratory distress, no accessory muscle use Cardiovascular: regular rate, rhythm, no edema Gastrointestinal: normal bowel sounds, soft, tenderness (epigastric and RUQ abdominal area) Extremities: normal range of motion, non-tender, normal inspection Neurologic/Psychiatric: alert, oriented x 3 Skin: normal color, warm/dry Assessment/Plan Assessment/Plan Admission Diagnosis/Plan A 22 year old female with acute pancreatitis secondary to biliary sludge. VSS. Labs improving. Patient currently NPO. On pain and nausea medications. Will proceed with a Laparoscopic cholecystectomy. Clinical Quality Measures DVT/VTE Risk/Contraindication: Risk Factor Score Per Nursin RFS Level Per Nursing on Admit: 1=Low/No VTE PPX Copy Copies To 1: MATEUS MARQUEZ MD, DUSTIN L APRN Apr 05, 2018 09:17
[2018-04-05] MEDS: PANTOPRAZOLE 40 MG (PROTONIX) VIAL IV SCH (09:33)
--- NOTE | 2018-04-05 09:33 | Progress Note-Pre Operative ---
Pre-Operative Progress Note H&P Reviewed The H&P was reviewed, patient examined and no changes noted. Date Seen by Provider: Apr 05, 2018 Time Seen by Provider: 09:00 Date H&P Reviewed: Apr 05, 2018 Time H&P Reviewed: 09:30 Pre-Operative Diagnosis: symptomatic choledocholithiasis ELMO BAER APRN Apr 05, 2018 09:33
[2018-04-05] MEDS ORDERED: BUP/EPI 0.5% 1:200,000 (SENSORCAINE) 30 ML VIAL ONE (09:39)
--- NOTE | 2018-04-05 10:00 | NUR ---
TO OR PER BED.
[2018-04-05] MEDS: LACTATED RINGERS 1,000 ML IV PRN ×2 (10:10→12:21)
[2018-04-05] MEDS ORDERED: LIDOCAINE PF 2% 5 ML (XYLOCAINE) VIAL ONE (10:29)
[2018-04-05] MEDS ORDERED: ONDANSETRON 4 MG/2 ML (SDV) Z0FRAN ONE (10:29)
[2018-04-05] MEDS ORDERED: proPOfol 200 MG/20 ML (DIPRIVAN) VIAL IV ONE (10:29)
[2018-04-05] MEDS ORDERED: MIDAZOLAM 2 MG/2 ML (VERSED) VIAL ONE (10:29)
[2018-04-05] MEDS ORDERED: fentaNYL INJECTION 100 MCG/2 ML AMP ONE ×2 (10:29→11:13)
[2018-04-05] MEDS ORDERED: ROCURONIUM 10 MG/ML 5 ML SYRINGE IV ONE (10:29)
[2018-04-05] MEDS ORDERED: ceFAZolin 1,000 MG/10 ML (ANCEF) VIAL ONE (10:32)
[2018-04-05] MEDS ORDERED: SEVOFLURANE (ULTANE) 15 ML INHAL SOLN ONE ×6 (10:32→11:42)
[2018-04-05] MEDS ORDERED: GLYCOPYRROLATE 0.2 MG/ML (ROBINUL) 2 ML VIAL ONE (11:42)
[2018-04-05] MEDS ORDERED: NEOSTIGMINE 1 MG/ML 5 ML SYRINGE ONE (11:42)
--- NOTE | 2018-04-05 11:45 | Progress Note-Post Operative ---
Post-Operative Progess Note Surgeon (s)/Rag Cutting Machine Tender (s) Surgeon MATEUS MARQUEZ MD Rag Cutting Machine Tender: claudia lundberg STATUE MAKER Pre-Operative Diagnosis gallstone pancreatitis, biliary sludge Post-Operative Diagnosis same Procedure & Operative Findings Date of Procedure 04/05/18 Procedure Performed/Findings laparoscopic cholecystectomy Anesthesia Type GET Estimated Blood Loss Estimated blood loss (mL): minimal Specimens/Packing Specimens Removed gallbladder MATEUS MARQUEZ MD Apr 05, 2018 11:45
[2018-04-05] MEDS ORDERED: HYDR-34 PO (11:49)
--- NOTE | 2018-04-05 11:52 | Discharge Inst-Surgical ---
D/C Lap Instructions-JIMMY New, Converted, or Re-Newed RX: RX on Chart Follow Up Appt in 2 weeks serum labs on saturday(04/07) Activity as tolerated No driving for 24 hours No [address] while on pain medications Incentive Spirometry use every 2 hours while awake Regular Diet Symptoms to Report: Fever over 101 degree F, Nausea/Vomiting Infection Signs and Symptoms to report: Increased redness, Foul odor of wound, Increased drainage Bathing instructions: May shower Operative Area Clean/Dry; Keep incision clean/dry If any problems/questions: Contact your physician or go to Emergency Room MATEUS MARQUEZ MD Apr 05, 2018 11:51
[2018-04-05 12:00] VITALS: BP 121/76
[2018-04-05] MEDS ORDERED: LACTATED RINGERS 1,000 ML IV ONE (12:13)
[2018-04-05] MEDS ORDERED: MEPERIDINE (DEMEROL) INJ 50 MG/ML IVP ONE (12:15)
[2018-04-05] MEDS ORDERED: fentaNYL INJECTION 100 MCG/2 ML AMP IVP ONE (12:15)
[2018-04-05] MEDS ORDERED: PROMETHAZINE INJ 25 MG/ML (PHENERGAN) AMP IVP ONE (12:15)
[2018-04-05] MEDS ORDERED: ONDANSETRON 4 MG/2 ML (SDV) Z0FRAN IVP PRN (12:15)
--- NOTE | 2018-04-05 12:19 | Discharge Summary-Hospitalist ---
Diagnosis/Chief Complaint Date of Admission Apr 01, 2018 at 20:19 Date of Discharge Discharge Date: Apr 05, 2018 Admission Diagnosis Assessment: Acute pancreatitis with normal Doppler ultrasound but family history of gallbladder disease Plan: Pain control Nothing by mouth status IV fluid Dr. Resendez consultation May need esophageal ultrasound to evaluate source of obstruction of biliary tree Discharge Diagnosis (1) Pancreatitis Status: Acute (2) Biliary sludge Status: Acute (3) S/P cholecystectomy Status: Acute Discharge Summary Discharge Physical Exam Allergies: Coded Allergies: No Known Drug Allergies (Unverified , 04/01/18) Vitals & I&Os Vital Signs Date Time Temp Pulse Resp B/P (MAP) Pulse Ox O2 Delivery O2 Flow Rate FiO2 04/05/18 08:00 98.2 99 18 124/74 (91) 97 Room Air General Appearance: No Apparent Distress, WD/WN Hospital Course Hospital course: Patient had a lengthy hospital course requiring nothing by mouth status and IV fluids for acute pancreatitis. Gallbladder ultrasound showed no evidence of any etiology so she required ERCP by Dr. Meraz which revealed gallbladder sludge and crystals causing biliary obstruction and pancreatitis. She underwent cholecystectomy and an uncomplicated manner by Dr. Larson and she was able to be discharged in improved condition to recover at home. Labs (last 24 hrs) Laboratory Tests 04/04/18 16:55: Urine Test NEGATIVE Patient resulted labs reviewed. Discussion & Recommendations Discharge Planning: <30 minutes discharge planning Discharge Home Medications: Active Scripts Active Lortab 7.5 Mg Tablet (Acetaminophen/Hydrocodone Bitart) 1 Ea Tablet 1 Each PO Q4H PRN MDD 6 Reported Estarylla 0.25-0.035 mg Tablet (Norgestimate-Ethinyl Estradiol) 1 Each Tablet 1 Tab PO DAILY Instructions to patient/family Please see electronic discharge instructions given to patient. Clinical Quality Measures DVT/VTE Risk/Contraindication: Risk Factor Score Per Nursin RFS Level Per Nursing on Admit: 1=Low/No VTE PPX Problem Qualifiers (1) Pancreatitis: Chronicity: acute Pancreatitis type: unspecified pancreatitis type Acute pancreatitis complication: unspecified Qualified Codes: K85.90 - Acute pancreatitis without necrosis or infection, unspecified LEANNA WRIGHT DO Apr 05, 2018 12:19
--- NOTE | 2018-04-05 13:00 | NUR ---
REC'D PER BED FROM PAR. ALERT AND ORIENTED. SEE ASSESSMENT. STAB SITES X 3 D/I ON ABD. IV PATENT LEFT F/A. C/O ABD PAIN. PERCOCET PO FOR PAIN.
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
--- NOTE | 2018-04-05 14:00 | NUR ---
RX TO FAMILY TO MANAGER GYN BEFORE PHARMACY CLOSES.
--- NOTE | 2018-04-05 15:00 | NUR ---
GABBI PO WITHOUT C/O. FENTANYL 25 IV FOR PAIN. FAMILY AT BEDSIDE. UP TO BR WITH SBA AND VOIDED.
[2018-04-05] MEDS: fentaNYL INJECTION 100 MCG/2 ML AMP IVP PRN (15:02)
--- NOTE | 2018-04-05 16:45 | NUR ---
IV REMOVED. INSTRUCTIONS GIVEN AND VERBALIZED UNDERSTANDING. READY FOR DC.
--- NOTE | 2018-04-05 17:03 | NUR ---
DC'D PER WC WITH SPOUSE. DENIES C/O.
== END 2018-04-05 17:04 | disposition home or self-care (01) | DRG 419 ==
LOC: EDSTATUS 14:51 → UNDOADMOB 20:19 → 4TH 20:19 → UNDODISOB 04-05 17:04
PROVIDERS: ADMIT Internal Medicine; ATTEND Internal Medicine
PROC: 0FT44ZZ Resection of Gallbladder, Percutaneous Endoscopic Approach (ICD-10-PCS; principal; 2018-04-05 10:37)
DX: K85.10 Biliary acute pancreatitis without necrosis or infection (principal); K80.50 Calculus of bile duct without cholangitis or cholecystitis without obstruction
CPT/HCPCS: 36415; 76705; 80053; 82150; 82962; 83690; 84703; 85025; 87081; 94664